=== PATIENT | female | born 1980 | race African-American/Black ===

== ENCOUNTER 2019-03-15 13:25 | Emergency (ER) | payer MEDICAID ==
[~2019-03-15] VITALS: Ht 162.6 cm; Wt 121.6 kg
[~2019-03-15 13:25] MED LIST: AMLODIPINE BESYL5 MG PO; BACTRIM DS TAB1 EAC1 ORAL; BENADRYL25 MG ORAL; CEPHALEXIN500 MG ORAL; LASIX40 MG PO; NAPROSYN500 M1 ORAL
[2019-03-15 13:36] VITALS: BP 155/102
[2019-03-15] MEDS ORDERED: ATENOLOL25 MG ORAL (13:39)
[2019-03-15] MEDS ORDERED: SYNTHROID137 MCG ORAL (13:39)
[2019-03-15] MEDS ORDERED: METFORMIN HCL500 M1 ORAL (13:39)
--- NOTE | 2019-03-15 13:40 | NUR ---
ED Nurse Note: ambulated in to ER due to SOB cough with clear mucus, congstion with headache x1 week.
[2019-03-15] MEDS ORDERED: Ipratropium 0.02% Inh Soln 2.5ml UD HHN ONE (14:00)
--- NOTE | 2019-03-15 14:07 | Emergency Room Report ---
History of Present Illness General Chief Complaint: Upper Respiratory Illness Source: Patient Present Illness HPI 38-year-old female with history of tobacco smoke, hypertension, diabetes currently controlled with medication here complaining of a 1 week of productive cough. Patient complains of posttussive chest pain and minimal phlegm production. Complains of wheezing exacerbating at night. Denies sore throat, fever, chills, abdominal pain, nausea vomiting. Reports that her symptoms started with being congested. Patient has been a tobacco smoker for 20 years. Complains of shortness of breath with her cough, however denies chest pain, headache, dizziness, blurry vision. She reports that she is compliant with her metformin intake and her fasting blood glucose is within normal range of. Been taking Robitussin for cough denies any other medication intake. Atenolol was taken this morning. Allergies: Coded Allergies: CODEINE (Verified Allergy, Unknown, 08/06/09) MORPHINE (Verified Allergy, Unknown, 08/06/09) Patient History Past Medical History: see triage record Pertinent Family History: unable to obtain Social History: Reports: smoking - tobacco smoke x 20 yrs Last Menstrual Period: 03/10/19 Now: No Immunizations: UTD Reviewed Nursing Documentation: PMH: Agreed; PSxH: Agreed Nursing Documentation-PMH Past Medical History: No History, Except For Hx Hypertension: Yes Hx Diabetes: Yes Review of Systems All Other Systems: negative except mentioned in HPI Physical Exam Vital Signs Date Time Temp Pulse Resp B/P (MAP) Pulse Ox O2 Delivery O2 Flow Rate FiO2 03/15/19 13:33 97.9 76 17 155/102 (119) 94 Room Air Sp02 EP Interpretation: reviewed, normal General Appearance: normal inspection, well appearing, no apparent distress, GCS 15 Head: normocephalic, atraumatic Eyes: bilateral eye normal inspection, bilateral eye PERRL ENT: normal pharynx, no angioedema, TMs + canals normal, uvula midline Neck: normal inspection, full range of motion, supple Respiratory: chest non-tender, no rhonchi, no respiratory distress, no retraction, no accessory muscle use, wheezing - Diffuse Cardiovascular #1: normal inspection, normal peripheral pulses, regular rate, rhythm, no edema, no gallop, no murmur Gastrointestinal: normal inspection, non tender, soft Genitourinary: no CVA tenderness Musculoskeletal: normal inspection, back normal Neurologic: normal inspection, alert, oriented x3 Psychiatric: normal inspection, judgement/insight normal Skin: normal inspection, normal color, no rash Lymphatic: normal inspection, no adenopathy Medical Decision Making PA Attestation All my diagnosis and treatment plans were reviewed ad discussed with my supervising physician Dr. Henson Diagnostic Impression: Primary Impression: Acute bacterial bronchitis Additional Impression: Cardiomegaly ER Course 38-year-old female with history of tobacco smoke, hypertension, diabetes currently controlled with medication here complaining of a 1 week of productive cough. Patient complains of posttussive chest pain and minimal phlegm production. Complains of wheezing exacerbating at night. Denies sore throat, fever, chills, abdominal pain, nausea vomiting. Reports that her symptoms started with being congested. Patient has been a tobacco smoker for 20 years. Complains of shortness of breath with her cough, however denies chest pain, headache, dizziness, blurry vision. She reports that she is compliant with her metformin intake and her fasting blood glucose is within normal range of. Been taking Robitussin for cough denies any other medication intake. Atenolol was taken this morning. Ddx considered but are not limited to: DE, Angina, COPD, GERD, bronchitis Vital signs: are WNL, pt. is afebrile H&PE are most consistent with bronchitis (bacterial secondary to tobacco smoke) ORDERS:chest XR, ipratropium neb, levaquin, jenelle kurtz, ED INTERVENTIONS: ipratropium neb DISCHARGE: At this time pt. is stable for d/c to home. Will provide printed patient care instructions, and any necessary prescriptions. Care plan and follow up instructions have been discussed with the patient prior to discharge. Patient later asked for Ativan due to anxiety I refused to give it to her as patient keeps asking for controlled substance wanting codeine even after I told her that it will interact with her cardiomegaly Chest X-Ray Diagnostic Results Chest X-Ray Diagnostic Results : Chest X-Ray Ordered: Yes # of Views/Limited/Complete: 1 View Indication: Chest Pain EP Interpretation: Yes PA Xray: Interpretation reviewed, by supervising MD, and agrees with findings. Interpretation: no consolidation, no effusion, no pneumothorax, other - cardiomegaly Impression: No acute disease Electronically Signed by: nahal saheli PA-C PA Scribe Text cardiomegaly noted, no other abnormalities Last Vital Signs Date Time Temp Pulse Resp B/P (MAP) Pulse Ox O2 Delivery O2 Flow Rate FiO2 03/15/19 13:36 97.9 76 17 155/102 94 Room Air Disposition: HOME, SELF-CARE Condition: Stable Scripts Ipratropium Moon 0.5MG/2.5ML (IPRATROPIUM BROMIDE 0.5MG/2.5ML) 0.2 Mg/1 Ml Solution 0.5 MG HHN Q6H PRN for Shortness of Breath, #28 EA Prov: Nya Castro 03/15/19 Benzonatate* (TESSALON PERLE*) 100 Mg Capsule 100 MG ORAL THREE TIMES A DAY, #20 PERLE Prov: Nya Castro 03/15/19 Levofloxacin* (LEVAQUIN*) 750 Mg Tablet 750 MG ORAL DAILY for 7 Days, #7 TAB Prov: Nya Castro 03/15/19 Patient Instructions: Acute Bronchitis, [id number] Additional Instructions: follow up with Primary care provider for follow-up regarding your enlarged heart which is not related to your acute bronchitis and your visit today Nya Castro Mar 15, 2019 14:07
--- NOTE | 2019-03-15 14:09 | NUR ---
ED Nurse Note: Respiratory therapist notified on breathing treatment.
--- NOTE | 2019-03-15 14:13 | NUR ---
ED Nurse Note: pt getting breathing treatment at the bedside.
[2019-03-15] MEDS ORDERED: TESSALON PERLE100 MG ORAL (14:24)
[2019-03-15] MEDS ORDERED: IPRATROPIU0.2 MG/1 M HHN (14:24)
[2019-03-15] MEDS ORDERED: LEVAQUIN750 MG ORAL (14:24)
--- NOTE | 2019-03-15 14:55 | Diagnostic Imaging Report ---
EXAM: XR Chest, 1 View CLINICAL HISTORY: PAIN TECHNIQUE: Frontal view of the chest. COMPARISON: No relevant prior studies available. FINDINGS: Lungs: Reduced lung volumes with accentuation of bronchovascular markings. Pleural space: Unremarkable. No pneumothorax. Heart: Cardiomegaly. Mediastinum: Unremarkable. Bones/joints: No acute fracture. IMPRESSION: Reduced lung volumes with accentuation of bronchovascular markings.
[2019-03-15 15:08] VITALS: BP 155/102
--- NOTE | 2019-03-15 15:08 | NUR ---
ED Nurse Note: Pt cleared by health care Provider for discharge. DC instructions/prescription was given and explained to pt and verbalized understanding of teachings. All medical deviecs such as ID band removed. Pt is AAO x4, ambulatory and left with all personal belongings.
== END 2019-03-15 15:09 | disposition home or self-care (01) ==
LOC: EMR 14:08
DX: J20.9 Acute bronchitis, unspecified (principal); I51.7 Cardiomegaly; I10 Essential (primary) hypertension; E11.9 Type 2 diabetes mellitus without complications; F17.200 Nicotine dependence, unspecified, uncomplicated; Z88.6 Allergy status to analgesic agent
CPT/HCPCS: 71045; 94640; 94664; 99284

== ENCOUNTER 2019-05-15 16:57 | Emergency (ER) | payer MEDICAID ==
[~2019-05-15] VITALS: Ht 162.6 cm; Wt 117.9 kg
[~2019-05-15 16:57] MED LIST changes: +ATENOLOL25 MG ORAL; +IPRATROPIU0.2 MG/1 M HHN; +LEVAQUIN750 MG ORAL; +METFORMIN HCL500 M1 ORAL; +SYNTHROID137 MCG ORAL; +TESSALON PERLE100 MG ORAL
[2019-05-15 17:15] VITALS: BP 142/92
--- NOTE | 2019-05-15 17:15 | NUR ---
ED Nurse Note: Timmy walked into ED c/o right facial pain for 2 weeks. patient reports of having 10/10 pain, states that advil pm has started working, denies any vision changes. patient is alert and oriented x4, ambulatory with a steady gait, VSS
--- NOTE | 2019-05-15 18:56 | Emergency Room Report ---
History of Present Illness General Chief Complaint: Pain Source: Patient Present Illness HPI 38 YO Female presents to the ED c/o 07/24 in severity progressive right sided ear and facial pain. pt. reports pain was initially responding well to advil however no longer does. denies trauma or fall. Reports need for right wisdom tooth removal as has been fractured for several months. Pt. denies ST/ cheek or gumline TTP. Denies ear d/c, reports canal seems to be closing up as difficult to use q-tip now. pt. denies neck pain/stiffness, NINA, rashes, ST or vocal changes. Denies fevers or chills. Allergies: Coded Allergies: CODEINE (Verified Allergy, Unknown, 08/06/09) MORPHINE (Verified Allergy, Unknown, 08/06/09) Patient History Past Medical History: see triage record Past Surgical History: none Pertinent Family History: none Last Menstrual Period: 05/10/19 Now: No Reviewed Nursing Documentation: PMH: Agreed; PSxH: Agreed Nursing Documentation-PMH Past Medical History: No History, Except For Hx Hypertension: Yes Hx Diabetes: Yes Review of Systems All Other Systems: negative except mentioned in HPI Physical Exam Vital Signs Date Time Temp Pulse Resp B/P (MAP) Pulse Ox O2 Delivery O2 Flow Rate FiO2 05/15/19 17:11 99.0 77 17 147/99 (115) 94 Room Air Sp02 EP Interpretation: reviewed, normal General Appearance: no apparent distress, alert, GCS 15, non-toxic Head: normocephalic, atraumatic Eyes: bilateral eye normal inspection, bilateral eye PERRL ENT: hearing grossly normal, normal pharynx, normal voice, uvula midline, moist mucus membranes, other - Right TM is erythematous and bulding, Canal is erythematous but without vesicles or discharge, no external ear TTP. TTP to tooth no. 1, visible broken portion of the crown, no fluctuance in the gumline. Neck: full range of motion, no meningismus, no bony tend Respiratory: chest non-tender, lungs clear, normal breath sounds, speaking full sentences Cardiovascular #1: regular rate, rhythm Musculoskeletal: back normal, gait/station normal, normal range of motion, non- tender Neurologic: alert, oriented x3, responsive, motor strength/tone normal, sensory intact, speech normal, grossly normal, grossly normal Psychiatric: judgement/insight normal Skin: no rash Lymphatic: no adenopathy Medical Decision Making PA Attestation Dr. Victor Is my supervising Physician whom patient management has been discussed with. Diagnostic Impression: Primary Impression: Otitis media Qualified Codes: H65.191 - Other acute nonsuppurative otitis media, right ear Additional Impression: Acute pulpitis ER Course 38 YO Female presents to the ED c/o 07/24 in severity progressive right sided ear and facial pain. pt. reports pain was initially responding well to advil however no longer does. denies trauma or fall. Reports need for right wisdom tooth removal as has been fractured for several months. Pt. denies ST/ cheek or gumline TTP. Denies ear d/c, reports canal seems to be closing up as difficult to use q-tip now. pt. denies neck pain/stiffness, NINA, rashes, ST or vocal changes. Denies fevers or chills. Ddx considered but are not limited to cellulitis, dental abscess, orbital cellulitis, d/l tooth, dental pain. trigeminal neuralgia, OM/OE Vital signs: are WNL, pt. is afebrile H&PE are most consistent with right OM and acute pulpitis of tooth no. 1 ORDERS: none required at this time, the diagnosis is clinical ED INTERVENTIONS: None required at this time. -I do not identify an emergent condition at this time. With current presentation , pt. is stable for close outpatient follow up and conservative treatment. D/ w pt. to return promptly to ED with worsening or new symptoms.- Pt. verbalizes' understanding and agreement with proposed treatment plan. DISCHARGE: At this time pt. is stable for d/c to home. Will provide printed patient care instructions, and any necessary prescriptions. Care plan and follow up instructions have been discussed with the patient prior to discharge. Last Vital Signs Date Time Temp Pulse Resp B/P (MAP) Pulse Ox O2 Delivery O2 Flow Rate FiO2 05/15/19 17:15 99.0 79 17 142/92 94 Room Air Disposition: HOME, SELF-CARE Condition: Stable Scripts Ibuprofen* (MOTRIN*) 600 Mg Tablet 600 MG ORAL THREE TIMES A DAY, #30 TAB 0 Refills Prov: Coral Mercer 05/15/19 Hydrocodone Bit/Acetaminophen 5-325* (NORCO 5-325*) 1 Each Tablet 1 TAB ORAL Q8HR PRN for For Pain, #9 TAB 0 Refills Prov: Coral Mercer 05/15/19 Amoxicillin/Potassium Clav 875-125* (AUGMENTIN 875-125 TABLET*) 1 Each Tablet 1 TAB ORAL TWICE A DAY for 10 Days, #20 TAB Prov: Coral Mercer 05/15/19 Chlorhexidine Gluconate (CHLORHEXIDINE GLUCONATE) 473 Ml Mouthwash 15 ML MM TID, #473 ML Prov: Coral Mercer 05/15/19 Lidocaine HCl 2% Viscous (Lidocaine HCl 2% Viscous) 100 Ml Solution 15 ML ORAL QID, #120 ML Prov: Coral Mercer 05/15/19 Patient Instructions: Dental Pain, Otitis Media, Adult, [id number] Additional Instructions: Take medications as directed. Follow up with a Dentist in 3-5 days, even if your symptoms have resolved. * * --Please review list of Dental clinics, if you do not already have a Dentist Return sooner to ED if new symptoms occur, or current symptoms become worse. Do not drink alcohol, drive, or operate heavy machinery while taking Tylenol # 3 as this may cause drowsiness. - Please note that this Emergency Department Report was dictated using [employer] lathe operator outside technology software, occasionally this can lead to erroneous entry secondary to interpretation by the dictation equipment. Coral Mercer May 15, 2019 18:56
[2019-05-15] MEDS ORDERED: LIDOCAINE VISC100 ML ORAL (19:00)
[2019-05-15] MEDS ORDERED: IBUPROFEN600 MG ORAL (19:00)
[2019-05-15] MEDS ORDERED: NORCO 5-325 TA1 EACH ORAL (19:00)
[2019-05-15] MEDS ORDERED: CHLORHEXIDINE473 ML MM (19:00)
[2019-05-15] MEDS ORDERED: AUGMENTIN 875-1 EAC1 ORAL (19:00)
[2019-05-15 19:04] VITALS: BP 142/92
--- NOTE | 2019-05-15 19:04 | NUR ---
ER DISCHARGE NOTE: Patient is cleared to be discharged per ERMD, pt is aox4, on room air, with stable vital signs. pt was given dc and prescription instructions, pt was able to verbalize understanding, pt id band removed without complications. pt is able to ambulate with steady gait. pt took all belongings.
== END 2019-05-15 19:04 | disposition home or self-care (01) ==
LOC: EMR 19:00
DX: H65.191 Other acute nonsuppurative otitis media, right ear (principal); K04.01 Reversible pulpitis; I10 Essential (primary) hypertension; E11.9 Type 2 diabetes mellitus without complications; Z88.5 Allergy status to narcotic agent
CPT/HCPCS: 99282